=== PATIENT | male | born 1990 | race Caucasian/White ===

== ENCOUNTER → 2016-08-06 | Outpatient (CLI) | payer OTHER ==
[2016-08-07 15:20] VITALS: BP 129/87
== END ==
LOC: MHUC 17:23
PROVIDERS: ATTEND Physician Assistant Medical
DX: J06.9 Acute upper respiratory infection, unspecified (principal); J02.9 Acute pharyngitis, unspecified
CPT/HCPCS: 87880; 99213

== ENCOUNTER 2016-09-13 19:25 | Emergency (ER) | payer OTHER ==
[~2016-09-13] VITALS: Ht 190.5 cm; Wt 128.9 kg
[2016-09-13 21:00] LABS: INFLUENZA VIRUS TYPE A ANTIBOD Negative (NEGATIVE); INFLUENZA VIRUS TYPE B ANTIBOD Negative (NEGATIVE)
[2016-09-13 22:10] VITALS: BP 153/91
== END 2016-09-13 22:12 | disposition home or self-care (01) ==
LOC: ED 19:27
DX: J02.9 Acute pharyngitis, unspecified (principal)
CPT/HCPCS: 87070; 87502; 87651; 99282; 99283